=== PATIENT | male | born 1945 | race Caucasian/White ===

== ENCOUNTER → 2017-09-09 | Outpatient (CLI) | payer MEDICARE, OTHER ==
[~2017-09-09] MED LIST: ALLO300 PO; ASPI81CH PO; ATOR10 PO; FENO160 PO; FINA5 PO; FURO40 PO; LEVSOD88 PO; LOSA50 PO; METF500 PO; POTCHL20ER PO; TAMS.4ER PO
[2017-09-09 12:16] LABS: Anion Gap 8 mmol/L (6-16); Blood Urea Nitrogen 16 mg/dL (8-24); Bun/Creatinine Ratio 15.1 (12.0-20.0); CO2, Blood 30 mmol/L (21-32); Calcium, Blood 9.4 mg/dL (8.5-10.1); Chloride, Blood 106 mmol/L (98-108); Creatinine, Blood 1.06 mg/dL (0.60-1.20); Glomerular Filtration Rate >60 (60-); Glucose, Blood 119 mg/dL (70-99); Sodium, Blood 144 mmol/L (136-145)
== END ==
LOC: LAB SHORT 11:58
PROVIDERS: Physician Assistant Surgical
DX: R06.02 Shortness of breath (principal)
CPT/HCPCS: 80048; 83880

== ENCOUNTER 2019-01-23 23:48 | Emergency (ER) | payer MEDICARE, OTHER ==
[~2019-01-23] VITALS: Ht 180.3 cm; Wt 117.9 kg
[~2019-01-23 23:48] MED LIST changes: +Norco 5-325 Ta1 EACH PO; +QUET25 PO; +SERT100 PO
[2019-01-24] MEDS ORDERED: ALLO300 PO (00:03)
[2019-01-24] MEDS ORDERED: LORA.5 (00:03)
[2019-01-24] MEDS ORDERED: DONE10 PO (00:04)
[2019-01-24] MEDS ORDERED: ACET500 (00:06)
== END 2019-01-24 03:18 | disposition home or self-care (01) ==
LOC: ER 23:48
DX: S09.90XA Unspecified injury of head, initial encounter (principal); W01.198A Fall on same level from slipping, tripping and stumbling with subsequent striking against other object, initial encounter
CPT/HCPCS: 12001; 70450; 72125; 99284-25

== ENCOUNTER 2019-01-29 16:35 | Inpatient (IN) | payer MEDICARE, OTHER ==
[~2019-01-29] VITALS: Ht 180.3 cm; Wt 107.1 kg
[~2019-01-29 16:35] MED LIST changes: +ACET500; +DONE10 PO; +LORA.5
[2019-01-29 17:01] LABS: BASOPHILS ABSOLUTE AUTO 0.01 K/mm3 (0.00-0.23); BASOPHILS PERCENT AUTO 0 % (0-2); EOSINOPHILS ABSOLUTE AUTO 0.09 K/mm3 (0.00-0.68); EOSINOPHILS PERCENT AUTO 1 % (0-6); Hematocrit 39.7 % (37.0-53.0); Hemoglobin 12.5 g/dL (13.5-17.5); IMMATURE GRAN ABSOLUTE AUTO 0.03 K/mm3 (0.00-0.10); IMMATURE GRAN PERCENT AUTO 0 % (0-1); LYMPHOCYTES ABSOLUTE AUTO 1.09 K/mm3 (0.84-5.20); LYMPHOCYTES PERCENT AUTO 14 % (21-46); MONOCYTES ABSOLUTE AUTO 0.54 K/mm3 (0.16-1.47); MONOCYTES PERCENT AUTO 7 % (4-13); Mean Corpuscular HGB 29.5 pg (26.0-34.0); Mean Corpuscular HGB Conc 31.5 g/dL (31.5-36.5); Mean Corpuscular Volume 94 fL (80-100); Mean Platelet Volume 9.8 fL (9.1-12.4); NEUTROPHILS ABSOLUTE AUTO 5.82 K/mm3 (1.96-9.15); NEUTROPHILS PERCENT AUTO 77 % (41-73); Platelet Count 154 K/mm3 (150-400); RDW Coefficient Variation 15.7 % (11.7-14.2); RDW Standard Deviation 53.8 fL (35.1-46.3); Red Blood Cell Count 4.24 M/mm3 (4.30-5.90); White Blood Cell Count 7.58 K/mm3 (4.00-11.30)
[2019-01-29] MEDS ORDERED: ALFUZOSIN HCL10 MG PO (17:07)
[2019-01-29] MEDS ORDERED: ATOR10 PO (17:08)
[2019-01-29] MEDS ORDERED: ASPI81CH PO ×2 (17:08→22:21)
[2019-01-29] MEDS ORDERED: MULTI VITAMIN1 EACH PO (17:08)
[2019-01-29] MEDS ORDERED: ALLO300 PO (17:08)
[2019-01-29] MEDS ORDERED: DONE10 PO (17:08)
[2019-01-29] MEDS ORDERED: FINA5 PO (17:09)
[2019-01-29] MEDS ORDERED: Furosemide20 MG PO (17:09)
[2019-01-29] MEDS ORDERED: LOSARTAN POTAS100 MG PO (17:10)
[2019-01-29] MEDS ORDERED: LORA.5 PO ×3 (17:10→22:48)
[2019-01-29] MEDS ORDERED: EUTHYROX88 MCG PO (17:10)
[2019-01-29] MEDS ORDERED: SERT100 PO (17:11)
[2019-01-29] MEDS ORDERED: QUET25 PO ×2 (17:11→22:12)
[2019-01-29] MEDS ORDERED: POTCHL20ER PO (17:11)
[2019-01-29] MEDS ORDERED: VITAMIN B122500 MC1 PO (17:12)
[2019-01-29 17:14] LABS: Alanine Aminotransfer (ALT/SGP 25 U/L (12-78); Albumin, Blood 3.8 g/dL (3.4-5.0); Albumin/Globulin Ratio 1.5 (0.8-1.8); Alk Phos 78 U/L (50-136); Anion Gap 7 mmol/L (6-16); Aspartate Aminotrans (AST/SGOT 22 U/L (12-37); Bilirubin, Total 0.5 mg/dL (0.1-1.0); Blood Urea Nitrogen 17 mg/dL (8-24); Bun/Creatinine Ratio 16.3 (12.0-20.0); CO2, Blood 28 mmol/L (21-32); Chloride, Blood 108 mmol/L (98-108); Creatinine, Blood 1.04 mg/dL (0.60-1.20); Globulin, Blood 2.5 g/dL (2.2-4.0); Glomerular Filtration Rate >60 (60-); Glucose, Blood 110 mg/dL (70-99); Sodium, Blood 143 mmol/L (136-145); Total Protein, Blood 6.3 g/dL (6.4-8.2)
[2019-01-29] MEDS ORDERED: FENO160 PO (19:29)
[2019-01-29] MEDS ORDERED: CYAN500 PO (22:17)
[2019-01-29] MEDS ORDERED: CHOL10002 PO (22:19)
[2019-01-29] MEDS ORDERED: ACET325 PO (22:20)
[2019-01-29] MEDS ORDERED: THERA1 EACH PO (22:22)
--- NOTE | 2019-01-29 23:24 | NUR ---
ADMIT NOTE PATIENT ADMITTED FROM THE ER AND WAS TRANSFERED FROM THE [facility] TO THE BED VIA SIDDER SHEET. PATIENT PLEASENT BUT CONFUSED AND FORGETFUL. PATIENT STATING THAT IT IS JANUARY 01, 2018. PATIENT ABLE TO STATE THAT HE IS AT THE HOSPITAL BUT UNABLE TO STATE WHICH [place]. PATIENT DID ATTEMPT TO GET OUT OF BED BUT WAS EASILY REDIRECTABLE. BED ALARM ON FOR SAFETY. CALL LIGHT WITHIN REACH.
--- NOTE | 2019-01-29 23:28 | NUR ---
UPDATE AT APPROX 2230 AFTER REDIRECTING PATIENT BACK INTO BED PATIENT BECAME VERY AGITATED WITH STAFF AND STARTED YELLING AND PULLING/PUSHING AT THINGS. PATIENT CONTINUED TO ATTEMPT TO CLIMB OUT OF BED AND WAS NO LONGER REDIRECTABLE. AN ORDER FOR A CJ VEST, BILATERAL SOFT WRIST RESTRAINTS, AND RAILS X4 WAS OBTAINED FROM [facility]. PATIENT A VERY HIGH FALL RISK, PATIENT FELL PRIOR TO ARRIVING TO THE HOSPIRTAL. PATIENT EXTREMALY AGITATED AND WANTS TO GET UP AND WALK AROUND HIS ROOM BUT HAS A HX OF MULTIPLE FALLS AND HAS WHAT APPEARS TO BE SEVERAL LUMPS ON HIS HEAD, POSSIBLY FROM PREVIOUS FALLS. AN ATTEMPT TO GIVE PO BENADDRYL WAS MADE BUT PATIENT SPITE IT OUT. IV BENADRYL WAS THEN ORDERED. PATIENT CURRENTLY AWAKE IN BED AND IS CALMER AND NOT YELLING OUT BUT PATIENT CONTINUES TO PULL AT RESTRAINTS AND ATTEMPT TO GET OUT OF BED. BED ALARM ON. WILL CONTINUE TO MONITOR.
[2019-01-30 04:02] LABS: Hematocrit 38.4 % (37.0-53.0); Hemoglobin 12.3 g/dL (13.5-17.5); Mean Corpuscular HGB 29.4 pg (26.0-34.0); Mean Corpuscular Volume 92 fL (80-100); Mean Platelet Volume 9.5 fL (9.1-12.4); Platelet Count 148 K/mm3 (150-400); RDW Coefficient Variation 15.7 % (11.7-14.2); RDW Standard Deviation 52.5 fL (35.1-46.3); Red Blood Cell Count 4.18 M/mm3 (4.30-5.90); White Blood Cell Count 8.07 K/mm3 (4.00-11.30)
[2019-01-30 04:24] LABS: Anion Gap 7 mmol/L (6-16); Blood Urea Nitrogen 14 mg/dL (8-24); Bun/Creatinine Ratio 17.2 (12.0-20.0); CO2, Blood 27 mmol/L (21-32); Calcium, Blood 8.9 mg/dL (8.5-10.1); Chloride, Blood 112 mmol/L (98-108); Creatinine, Blood 0.81 mg/dL (0.60-1.20); Glomerular Filtration Rate >60 (60-); Glucose, Blood 98 mg/dL (70-99); Potassium, Blood 3.5 mmol/L (3.5-5.5); Sodium, Blood 146 mmol/L (136-145)
--- NOTE | 2019-01-30 06:43 | NUR ---
SHIFT SUMMARY PATIENT CALMED FOR SEVERAL HOURS AND APEARED TO REST COMFORTABLY. HOWEVER, PATIENT DID NOT APPEAR TO SLEEP LAST NIGHT. THIS MORNING PATIENT KEEPS THROWING HIS LEGS OVER THE EDGE OF THE BED. PATIENT IS REPOSITONED EACH TIME, HOWEVER PATIENT IS ABLE TO WIGGLE HIS LEGS BACK OVER THE EGE OF THE BED QUICKLY EACH TIME. PATIENT CONSTANTLY TALKING IN THE ROOM, EVEN WHEN NO ONE IS THERE. PATIENT WILL SAY THINGS LIKE, "WHY ARE THOSE PEOPLE STANDING THERE? 11,9,5 ARE NUMBERS BACK IN MY OFFICE, PEOPLE ARE ON THE OVERPASS ALL THE TIME." PATIENT'S THOUGHTS DO NOT CONNECT AND PATIENT IS FREQUENTLY UNABLE TO APPROPRIATLEY RESPOND TO QUESTIONS. HOWEVER, MENTATION DOES NOT APPEAR TO HAVE CHANGED SINCE ADMIT TO THE FLOOR. SEIZURE PERCAUTIONS IN PLACE. NEURO CHECKS PER ORDERS. WILL CONTINUE TO MONITOR PATIENT AND REPORT TO ONCOMING RN.
--- NOTE | 2019-01-30 11:46 | NUR ---
BEGINING OF SHIFT: ASSUMED CARE OF PT AT 0700, RECEIVED REPORT FROM JORDAN GARCIA. UPON ENTERING ROOM PT WAS ATTEMPTING TO GET OUT OF BED WITH BOTH FEET OVER THE RAIL. WHEN ATTEMPTING TO HELP PT BACK IN TO BED HE BECAME AGGRESSIVE AND BEGAN TO KICK AND GRAB AT STAFF. HE DID NOT MAKE CONTACT NOR HIT ANYONE, HOWEVER, STAFF HAD A DIFFICULT TIME REPOSITIONING HIM. PT IS ALERT AND IS ORIENTED TO SELF ONLY . PT IS CONFUSED AND SPEECH IS INSENSIBLE. HE RECIVED ATIVAN THIS MORNING FOR THE CT, AND THE MEDICATION WAS EFFECTIVE. PT WOUNDS WERE CLEANED AND COVERED. PT IS AT BEDSIDE. PT HAS BEEN REPOSITIONED FREQUENTLY. BED AT LOWEST LEVEL, CALL LIGHT WITHIN REACH.
--- NOTE | 2019-01-30 18:01 | NUR ---
SHIFT SUMMARY: PT'S CJ HAS BEEN TAKEN OFF, HOWEVER WRIST RESTRAINTS ARE STILL IN PLACE. PT HAS BEEN REPOSITONED FREQUENTLY AND HAS REQUIRED ATTEND CHANGE. PT APPERS DIAPHORETIC AND LINENS HAVE BEEN CHANGED EVERY TWO HOURS. ROM MOTION WAS ALSO PERFORMED. SPOKE TO PT'S AND SHE STATED THAT HIS MENTATION AND BEHAVIOR ARE WORSE THAN NORMAL.PT HAS YELLED OUT DURING THE SHIFT, A MIDDLEKO CONSULT WAS PLACED. PT CONTINUES TO TALK TO SELF. WILL CONTINUE TO MONITOR PT UNTIL REPORT IS GIVEN TO ONCOMING SHIFT. CALL LIGHT WITHIN REACH, BED AT LOWEST LEVEL.
--- NOTE | 2019-01-31 05:42 | NUR ---
SHIFT SUMMARY PATIENT REMAINED CONFUSED THROUGHOUT SHIFT, SOFT WRIST RESTRAINT STILL IN PLACE. PATIENT REPOSITIONED FREQUENTLY. HEART RHYTHM SINUS RHYTHM BUNDLE BRUNCH BLOCK HEART RATE AT 73, DIAPHORETIC. PATIENT CONTINUES TO SELF TALK. BED LOCKED, LOW POSITION, AND CALL LIGHT WITHIN REACH.
--- NOTE | 2019-01-31 13:55 | NUR ---
Initial Visit: Palliative Care Consult for AD/POLST and Advanced Care Planning. Pt is A&Ox1 and appears comfortable. Pt is pleasantly confused and engages in 2 to 3 word nonsensical conversations which is difficult to understand as Pt mumbles his workds. No signs of distress at this time. Spoke with Pt's bedside nurse Chantale. She reports Pt's Karla visited Pt earlier today. Chantale reports Pt is incontinent of bowel and bladder, and needs assistance with eating. She reports Pt has a good appetite and has not been out of bed during his hospital stay. Chantale reports speaking with Pt's . has reported Pt was up ambulating around facility and able to feed himself but has seen a significant delcine over the last 2 weeks. Current Assessment of prognostication scores is not baseline PPS 40% Karnofsky 40% FAST Score 7C ADLs 6/6 Plan: Palliative Care will F/U for therapeutic visit and discuss goals of care with Pt's when she comes into visit.
--- NOTE | 2019-01-31 17:40 | NUR ---
NURSING DAYSHIFT SUMMARY: No significant changes noted t/o the shift. Respiratory and cardiac status remain stable. Pt continues to experience confusion and word salad which was baseline (prior to fall at facility) per spouse. Fairly cooperative w/care though noted agitation at times when unable to express needs. OOB to bathroom w/two staff assist, able to bear weight though required additional staff to help direct. Pt intermittently became difficult to redirect w/increased agitation and impulsiveness, IV ativan administered x1. B/L soft wrist restraints remain in place though pt is able to swing legs over edge of bed, bed alarm set for safety purposes. Seen by psych consult, new d/o received. Call placed by RN and consulting physician to spouse, update provided. Spouse denies any questions regarding current plan of care. Frequent rounding required d/t pt's ability to use call light, cont to monitor until rpt is given to NOC RN.
--- NOTE | 2019-02-01 05:19 | NUR ---
SHIFT SUMMARY: KRUNAL ARRIVED TO FLOOR AT 1956, BED WAS SWITCHED OUT. PT WAS ALERT AND ORIENTED TO SELF ONLY. SPEAKING IN WORD SALAD. WITH SOFT WRIST RESTRAINTS NOTED TO BILATERALY. SKIN PWD, BRUISING NOTED SCATTERED ON BUE AND POSTERIER OF HEAD AROUND TO THE LEFT EAR, CAUSED BY RECENT FALL. BRUISE IS ALSO ON ABDOMIN. THERE IS ALSO PADS ON SIDE RAILS AND 4 RAILS ARE UP PER ORDERS. LS CLEAR T/O, RESP E/U. ATTENDS ARE DRY AND IN PLACE. WHEN REMOVING THE TELE STICKERS, HE BECAME AGITATED, AND TRIED TO SWAT MY HANDS AND ARMS, YELLING AND STATING TO LEAVE HIM ALONE. REDIRECTED AND HE DID OK FOR A MIN OR TWO BUT CONTINUED TO MUMBLE ON ABOUT ODD THINGS. NO BM TONIGHT. AFTER 2100 MEDS HE SLEPT WELL, WITH MILD RESTLESSNESS OFF AND ON IN HIS SLEEP LIKE HE WAS DREAMING. CONTINUED RESTRAINT CHECKS, NEURO CHECKS PER PROTOCOL. NO ACUTE CHANGES OCCURRED THIS SHIFT.
--- NOTE | 2019-02-01 12:36 | NUR ---
Pt visit this afternoon. Pt's Karla present during visit. Pt is A&Ox1 and prem pain at this time. Pt is a little more verbal today and easier to understand although he engages in nonsensical conversation. Engaged in therapeutic discussion regarding goals of care. Encouraged Karla to expresses concerns and fears regarding disease process. Karla aknowledges Pt's continued decline and reports a significant decline over the last few weeks. Discussed option for hospice and Karla expresses interest. Educated Karla on hospice philosophy with V/U made by Karla. Gave Karla list of hospice agencies available and she reports plan to discuss with facility staff for angency recommendations. Karla reports no other concerns at this time. Spoke with Pt's bedside nurse Ronald and she reports no concerns at this time. Spoke with Taye Pascal regarding Karla's decision for hospice. Spoke with Dr Andrade and he is agreeable with plan. Plan: Will place hospice referral. Palliative Care will remain available.
--- NOTE | 2019-02-01 18:49 | NUR ---
SUMMARY- PT ALERT TO SELF AND FAMILY. LABILE MOODS. HAD ONE EPISODE TODAY AND BECAME VERY COMBATIVE, SLIPPED OUT THE END OF THE BED AND RN HELPED HIM TO MAINTAIN BALANCE, STARTED TO FALL, RN WAS ABLE TO KEEP PT FROM FALLING, PT TRIED TO PUNCK STAFF MULTIPLE TIMES. PT WAS TRYING TO GO TO THE BATHROOM, HAD XL BM, BACK TO BED WITH EXTRA STAFF AND SECURITY CALLED. GAVE ZYPREXA X1, PT CALMED TOWARDS END OF SHIFT. TOLERATED MEALS WITH ASSIST, GOOD FLUID INTAKE. VSS. FAMILY IN TO VISIT THIS AM.
--- NOTE | 2019-02-02 06:50 | NUR ---
Rn summary: Patient is restless and confused. Patient is in wrist restraints. He is constantly wiggling to end of bed, throwing both legs over the rails etc. Pt did calm down after evening meds given. Patient with meds crushed in pudding except for potassium. Pt is incontinent of urine. This am pt not awake enough to take thyroid. Pt has been more calm and not trying to get out of bed. Bed to low position. Needs frequent repositioning.
--- NOTE | 2019-02-02 14:17 | NUR ---
Pt visit this AM. Pt resting in bed and has soft restraints placed. Pt appears comfortable with no signs of distress. Pt denies pain. Pt's speech easier to understand but still engages in word salad. Pt's Karla is present during visit. Karla has decided on hospice agency and reports preference for [facility]. Karla expresses concerns on Pt experiencing agitation earlier this AM and agression yesterday. Dr Andrade present during most of the visit. Dr Andrade explains that discharge will be delayed until Pt's agitation can be managed and restraints can be D/C. Karla is agreeable to this plan. Spoke with Dr Andrade and he requests for this RN to contact Dr Duenas and request to have pysch medications adjusted. No other concerns at this time. Spoke with Pt's bedside alissa Hoff and she reports that she will continue to assess Pt's safety appropriatness for soft restraints and will D/C when Pt's safety is no longer at risk. Spoke with Dr Duenas and he reports that he will adjust medications. Spoke with overnight caregiver Ledy, Taye liadavid Pascal, and [facility] liadavid Sorto regarding plan for [facility] upon discharge. Palliative Care will remain available.
--- NOTE | 2019-02-02 14:35 | NUR ---
LATE ENTRY-1435 AT 1410 PT UP IN [facility] WALKING, 3 STAFF MEMBERS ASSIST WITH AMBULATION, ATTEMPTING TO GET PATIENT BACK IN ROOM AND IN BED. PT STUMBLING WITH ASSISTANCE. RESTRAINTS TAKEN OFF APPROXIMENTLY 2 HOURS AGO, NOT AT BEDSIDE. PT ATTEMPTING TO ELBOW STAFF. PT RECEIVED PO ZYPREXA AT [address]. NOTIIF[address] GOVEA AT 1417, ORDERS TO GIVE IM ZYPREXA AND IF THAT DOES NOT WORK TO PLACE IN RESTRAINTS. SECURITY CALLED FOR ASSISTANCE. STAFF WAS ABLE TO GET PT BACK IN BED TO DO A DRESSING CHANGE AND PT STARTED HITTING STAFF WITH OPEN PALM. AT 1427 IM ZYPREXA GIVEN, PT CONTINUES TO ATTEMPT TO GET OUT OF BED. STARTS TO CALM DOWN. PT RESTING IN BED AT THIS TIME WITH NO RESTRAINTS ON. WILL CONTINUE TO MONITOR.
--- NOTE | 2019-02-02 15:42 | NUR ---
PT AGGITATED, ATTEMPING SEVERAL TIMES TO GET OUT OF BED AND SETTING THE BED ALARM OFF. STEPHIE DAI RN NOTIFIED DR GOVEA, NEW ORDER ENTERED. PT PLACED IN CJ AND SOFT WRIST RESTRAINTS TO PROTECT SLEF AND STAFF. WILL CONTINUE TO MONITOR.
--- NOTE | 2019-02-02 16:29 | NUR ---
SHIFT SUMMARY PT A&Ox1; SELF AND FAMILY. LABILE. CALM AND COOPERATIVE WITH CARE AT TIMES, BUT PT HAD SEVERAL IRRITABLE/AGGITATED EPISODE AND WAS COMBATATIVE WITH STAFF. PT REMOVED FROM RESTRAINTS THIS AFTERNOON AND PLACED IN CJ AND BILATERAL SOFT WRIST RESTRAINTS THIS AFTERNOON PER ORDERS. PT 2-3 PERSON ASSIST WITH AMBULATION, HE REFUSES TO US WALKER. PT SPEECH IS GARBLED AND NONSENSICAL AT TIMES. PT MEDICATED X2 WITH ZYPREXA FOR AGGITATION IN AN ATTEMPT TO LEAVE RESTRAINTS OFF. PT DENIES PAIN, SOB AND N/V DURING SHIFT. PT TAKES MED CRUSHED WITH APPLESAUCE. VSS. NO OTHER ACUTE CHANGES NOTED DURING SHIFT. WILL CONTINUE TO MONITOR UNTIL REPORT GIVEN TO ONCOMING RN.
--- NOTE | 2019-02-02 21:58 | NUR ---
PT RESTRAINTS REMOVED AT 2100 HRS. PT COOPERATIVE. PT NOT BEING AGGRESIVE OR TRYING TO GET OUT OF BED.
--- NOTE | 2019-02-03 04:47 | NUR ---
SHIFT SUMMARY PT RESTRIANTS REMOVED THIS SHIFT. PT CONFUSED BUT COOPERATIVE. PT HAS SLEPT WELL T/O SHIFT. PT HAD POOR PO FLUID INPUT AND POOR URINE OUTPUT THIS SHIFT. PT HAD NO ACUTE ISSUES NOTED. PT SLEEPING AND BREATHING EASY. CALL LIGHT IN REACH AND BED ALARM ON.
--- NOTE | 2019-02-03 18:32 | NUR ---
PT SLEPT MOST OF THE MORNING, DID WAKE AND TAKE HIS MEDICATIONS WITH YOGURT. PHYSICAL THERAPY WALKED PT IN THE [facility] FOR A SHORT DISTANCE. THIS AFTERNOON HE IS MORE ALERT, INTERACTING WITH FAMILY AND EATING FAMILY FEEDS HIM. HE HAS BEEN COOPERATIVE WITH CARE T/O THE SHIFT. WILL CONTINUE TO MONITOR AND REPORT TO ONCOMING RN
--- NOTE | 2019-02-04 04:00 | NUR ---
SHIFT SUMMARY PT HAD TRIED TO GET OUT OF BED EARLY IN SHIFT. PT IS UNSTEADY AND HIGH FALL RISK. PT TRIED TO HIT AND KICK STAFF WHEN REDIRECTED BACK TO BED. PT PLACED IN 4 EXT SOFT RESTRAINTS FOR SAFETY. PT HAS SLEPT OFF AND ON T/O SHIFT. PT HAD NO OTHER ISSUES NOTED. PT CURRENTLY RESTRAINED AND SLEEPING. PT CALL LIGHT IN REACH AND BED ALARM ON.
--- NOTE | 2019-02-04 18:58 | NUR ---
NO ACUTE CHANGES NOTED THIS SHIFT, PT REMAINS IN SOFT RESTRAINTS ALL 4 LIMBS. WILL CONTINUE TO MONITOR AND REPORT TO ONCOMING RN
--- NOTE | 2019-02-05 03:52 | NUR ---
SHIFT SUMMARY PT CONTINUES TO BE CONFUSED AND ATTEMPTING TO GET OUT OF BED. PT ALSO HITS AND KICKS AT STAFF. PT SOFT RESTRAINT ORDERS WERE RENEWED. PT IN 4 POINT SOFT RESTRAINT. PT HAD NO OTHER ISSUES NOTED. PT CURRENTLY SLEEPING AND BREATHING EASY. CALL LIGHT IN REACH AND BED ALARM ON.
--- NOTE | 2019-02-05 09:52 | NUR ---
SPOKE TO CAMERA HEEL EMERY BUFFER, CAMERAS UP AND WORKING
--- NOTE | 2019-02-05 13:55 | NUR ---
Pt visit this afternoon. Pt is resting in bed and appears comfortable. When responding to questions Pt engages in nonsensical conversation. Pt currently in soft restraints. Spoke with Pt's bedside nurse Anna and she reports Pt's hospital stay has been extended due to restraints. Pt's facility requires 3 days of no restraints. No other concerns reported at this time. Palliative Care will remain available.
--- NOTE | 2019-02-05 18:36 | NUR ---
SHIFT SUMMARY DIRK WAS NON VERBAL TODAY. STILL TRYING TO GET OOB WITHOUT RESTRAINTS AND DAUGHTER VISITED. INCONTINENT URINE, CHANGED AND TURNED ROUTINELY. VERY POOR PO INTAKE, ENCOURGED FREQUENTLY. SOFT RESTRAINTS ON X4. FIGHTS BRIEF CHANGES A LITTLE BIT, BUT MORE CALM OVERALL THIS SHIFT THAN YESTERDAY (PER PREVIOUS NURSE). CAMERA ON AND WORKING SINCE THIS MORNING PER DIRECTOR WOMEN. RED ILA AREA, POWDER APPLIED. NO NONVERBAL S/S OF PAIN. TOOK MOST OF MEDS WITH PUDDING, BUT HE DOES TEND TO CHEW THEM. CONSIDER CRUSHING
--- NOTE | 2019-02-06 04:14 | NUR ---
SHIFT SUMMARY PT REMAINS IN RESTRAINTS. PT LEG RESTRAINTS WERE REMOVED DURING BEGINNING OF SHIFT. DURING ATTENDS CHANGING PT TRIES TO KICK AND HIT. PT REMAINS CONFUSED AND UNABLE TO BE REDIRECTED. PT CURRENTLY SLEEPING AND BREATHING EASY. CALL LIGHT IN REACH AND BED ALARM ON.
--- NOTE | 2019-02-06 16:44 | NUR ---
PATIENT SLEPT MOST OF THE MORNING. WOKE UP FOR LUNCH AND TOOK HIS MORNING MEDS CRUSHED IN APPLESAUCE. PATIENTS AT BEDSIDE UNTIL AFTER LUNCH. RESTAINTS REMOVED AT 1025 THIS AM. PATIENT WORKED WITH PT/OT AND WALKED IN HALLS. NEEDS A LOT OF QUES AND CONTINUES TO GET UP WITHOUT ASSISTANCE. DID WELL SITTING IN HALLS IN A CHAIR WITH STAFF AROUND. VSS THIS SHIFT. NO S/S OF PAIN NOTED. LINDA TO BACK OF HEAD INTACT. 18G IV TO L AC WNL AND SL.
--- NOTE | 2019-02-07 05:16 | NUR ---
SHIFT SUMMARY PT TRIED NUMEROUS TIMES TO GET OUT OF BED, BECOMING AGITATED. WRIST RESTRAINTS PLACED BACK ON PT EARLY EVENING. PT STILL PUTTING LEGS OUT OF BED. TRYING TO GET OUT OF BED THIS AM AND STARTED TO KICK AT STAFF WHILE HELPING HIM BACK INTO BED AND STRAITENING HIM OUT. BED ALARM ON, WILL CONTINUE TO MONITOR.
--- NOTE | 2019-02-07 10:04 | NUR ---
Pt visit this AM. Pt resting in bed with his eyes closed and appears comfortable. Pt's Karla is present during visit. Karla expresses concerns regarding Pt still in restraints. She also reports [facility] is no longer willing to accept Pt back due to fall risk. She requests that discharge planners contact her for discussion of plan and options. Karla reports no other concerns at this time. Spoke with Pt's bedside nurse Babar and he reports no concerns at time of visit. Spoke with care aid Citlaly regarding 's concerns and request for care aidcomplex human resources manager. Citlaly reports she will start working on concerns. Called and spoke with Dr Storey and requested was made to consider a scheduled medication to help manage agitation such as haloperidol. Dr Storey reports that he prefers to keep current regimen. Palliative Care will remain available.
--- NOTE | 2019-02-07 12:36 | NUR ---
RESTRAINTS REMOVED: PT ALERT; ORIENTED TO SELF AND FAMILY. DECREASING COMBATIVENESS. BILATERAL SOFT WRIST RESTRAINTS REMOVED AT 1000. NO ATTEMPTS TO GET OOB; NO ATTEMPTS TO PULL OUT IV ACCESS. PT COOPERATIVE WITH CARE. PRAFUL.
--- NOTE | 2019-02-07 19:35 | NUR ---
SHIFT SUMMARY: PT ALERT; ORIENTED TO SELF AND FAMILY. PT OUT OF WRIST RESTRAINTS SINCE 1000; PT COOPERATIVE WITH CARE. INCREASING AGITATION SINCE APPROX 1600; PT HX "".PT MEDICALLY STABLE; PT REQUIRED TO BE OUT OF RESTRAINTS FOR 72 HOURS BEFORE [facility] WILL ACCEPT PATIENT. REPORT GIVEN TO ONCOMING RN.
--- NOTE | 2019-02-08 06:22 | NUR ---
SHIFT SUMMARY PT ORIENTED TO SELF ONLY. CAN GET AGITATED C CARES. INCONT OF URINE. HE WAS ABLE TO SLEEP T/O NIGHT NOT NEEDING ANY KIND OF RESTRAINTS. SCD'S IN PLACE. BED ALARM IN USE.
--- NOTE | 2019-02-08 12:20 | NUR ---
CALLED HOSPITALIST FAMILY EXPRESSED CONCERN OVER LENGTH OF TIME LINDA IN PT'S SCALP HAD BEEN IN PLACE. HOSPITALIST REQUESTED A STAPLE REMOVAL KIT BE LEFT IN ROOM FOR HIS NEXT ROUNDING, HE STATED THAT HE WILL REMOVE LINDA BEFORE PT IS DC'D.
--- NOTE | 2019-02-08 15:02 | NUR ---
Pt visit this afternoon. Pt is resting in bed and appears comfortable. Pt engages in nonsensical conversation. He appears mildly anxious as evidenced by constand movement of his body including his arms and hands. Currently out of restraints. Palliative care will remain available
--- NOTE | 2019-02-08 17:13 | NUR ---
CALLED HOSPITALIST, CALLED DR. FLORES PT BECAME ANXIOUS, REFUSING TO BE RE-DIRECTED. I GAVE ORAL XYPREXA. NURSING AID TOOK HIM FOR A WALK. PT BECAME MORE AND MORE AGITATED. ATTEMPTED TO GET OUT OF BED UNSAFELY OVER THE RAILINGS. I GAVE IM XYPREXA. BUNCHER OPERATOR AND CHARGE SAT WITH PT ATTEMPTING TO CALM. PT BEGAN TO ATTEMPT TO HIT STAFF, HITTING BUNCHER OPERATOR IN ABDOMEN. HARIS HERNANDEZ CALLED. PT PUT IN CJ VEST. CALLED HOSPITALIST. HE AGREED TO CJ RESTRAINT. HE RECOMMENDED MEDICATION DOSAGE CHANGES AND THAT I CALL DR. FLORES, WHO AGREED WITH THE HOSPITALIST'S RECOMENDED CHANGES.
--- NOTE | 2019-02-08 17:46 | NUR ---
SHIFT SUMMARY ADMITTED FOR SUBARACHNOID BLEED. DNR. A&O TO SELF AND FAMILY ONLY. HX DEMENTIA. PULLED OUT IV ON PREVIOUS SHIFT. HOPING FOR DC TO [place] IF PT CAN REMAIN FREE OF RESTRAINTS FOR 3 DAYS. PT HAS A LARGE WOUND/HEMATOMA WITH LINDA ON LEFT POSTERIOR SCALP. FROM [place] WHERE HE FELL. NEW ORDERS ENTERED TODAY WHEN PT BECAME COMBATIVE W/STAFF AND IMPULSIVE. HARIS HERNANDEZ CALLED, PT RESTRAINED VIA CJ VEST. CRUSH MEDS IN APPLESAUCE. [place] PT.
--- NOTE | 2019-02-09 07:05 | NUR ---
SHIFT SUMMARY PT IN CJ VEST RESTRAINTS. SWINGS AND GETS AGITATED C CARES. HE SLEPT THROUGH OUT NIGHT. INCONT OF URINE Q2HR TURNS. BED ALARM IN USE.
--- NOTE | 2019-02-09 13:42 | NUR ---
CALLED HOSPITALIST LEFT OUR CONTACT NUMBER FOR HIS PAGER. WANTED TO INFORM HIM THAT THE PT WAS AWAKE AND UPDATE HIM ON FAMILY REQUESTS. PT IS BATTING AT HIS WHEN SHE ATTEMPTS TO FEED HIM OR GIVE HIM FLUIDS.
--- NOTE | 2019-02-09 13:56 | NUR ---
SPOKE TO DR LAURENT- PER DR LAURENT ALL MEDS HELD ARE ONCE A DAY MEDICATIONS AND SHOULD BE GIVEN TODAY WHEN PT WAKES UP. WILL PASS THIS ON TO DAY RN WHEN SHE RETURNS.
--- NOTE | 2019-02-09 14:38 | NUR ---
GAVE MORNING MEDS NURSE RADHA RECEIVED INSTRUCTIONS FROM HOSPITALIST TO GIVE DAILY MEDS THAT HAD BEEN HELD EARLIER DUE TO PT'S LETHARGY. I DID NOTICE THAT THE THYROID MEDICINE HAD NOT BEEN GIVEN SINCE TUESDAY. I DID GIVE IT TODAY ORALLY. WITH MUCH RE-DIRECTION AND COAXING WE WERE FINALLY ABLE TO GIVE THE ORAL MEDS.
--- NOTE | 2019-02-09 15:54 | NUR ---
SHIFT SUMMARY PT ADMITTED FOR A SUBARACHNOID BLEED (FELL @ [facility] WHERE HE PREVIOUSLY RESIDED). DNR. LARGE HEMATOMA W/LINDA IN LEFT POSTERIOR SCALP. MEDS GIVEN CRUSHED IN APPLESAUCE/PUDDING. CJ VEST ON FOR COMBATIVE BEHAVIOR AND FOR TRYING TO GET OUT OF BED OVER RAILINGS. ATTENDS IN PLACE. WALKING DOES HELP PT'S MENTATION. MED CHANGES MADE TODAY W/INPUT FROM FAMILY TO HOSPITALIST:BUBBA BHANDARI. PT USES A FWW W/GAIT BELT TO AMBULATE, ONE ASSIST. PT SLEPT MOST OF DAY, DAILY MEDS WERE NOT ADMINISTERED UNTIL EARLY AFTERNOON DUE TO PT'S LETHARGY. I DID ADMIN PRN 5 MG ZYPREXA @1542 HRS WHEN IT WAS POINTED OUT TO ME THAT HIS PATTERN IS TO "" AROUND 1600 HRS. PT WAS WALKED BY PHYSICAL THERAPY DOWN DCU [facility] AND BACK, HE COOPERATED AND GOT HIMSELF BACK INTO BED. I AM AGAIN LEAVING CJ UNTIED AND DC'ING CJ VEST. THE HOPE IS FOR 3 DAYS - NO RESTRAINTS, THEN ALF PLACEMENT @ [facility].
--- NOTE | 2019-02-09 19:29 | NUR ---
CALLED HOSPITALIST PT ATTEMPTING TO EXIT BED. NON-COOPERATIVE. ANGRY. THREW FULL DRINK ACROSS ROOM. SWATTING AT STAFF. PREVIOUSLY HAD GIVEN PRN ZYPREXA IN AN ATTEMPT TO AVOID RESTRAINTS, BUT TO NO AVAIL. PT HAD ONLY BEEN OUT OF RESTRAINTS FOR A FEW HOURS WHEN HIS BEHAVIOR BEGAN TO ESCALATE AGAIN.
--- NOTE | 2019-02-10 06:21 | NUR ---
SHIFT SUMMARY PT IS A 73 Y/O MALE, ADMITTED FOR A SUBARACHNOID BLEED AFTER A HEAD INJURY FROM A FALL AT HOME. PT IS A&O X SELF/FAMILY, AND VERY LETHARGIC WITH WORD SALAD NOTED DURING THE EVENING. IN THE MORNING, PT APPEARED MORE ALERT, AND WAS ABLE TO COHERENTLY ANSWER QUESTIONS WITH ONE TO TWO WORD ANSWERS. PT WAS PLACED IN A CJ VEST DURING THE NIGHT, THE PT IS OCCASIONALLY COMBATIVE AND IS A HIGH FALL RISK. HE DENIED ANY COMPLAINTS OF PAIN, NAUSEA OR SOB DURING THE NIGHT, AND SLEPT WELL. VITAL SIGNS STABLE. NO OTHER ACUTE CHANGES IN PT CONDITION NOTED. WILL CONTINUE TO MONITOR AND TREAT PER EMAR.
--- NOTE | 2019-02-10 16:04 | NUR ---
SHIFT SUMMARY NO ACUTE CHANGES. PATIENT OUT OF RESTRAINTS TODAY. AT BEDSIDE THIS MORNING. PATIENT DENIES PAIN, NAUSEA, AND SHORTNESS OF BREATH. PATIENT NAPPED OFF AN ON DURING SHIFT, COOPERATIVE WITH CARE. CALL LIGHT IN REACH, WILL CONTINUE TO MONITOR.
--- NOTE | 2019-02-10 22:51 | NUR ---
SYNCOPAL EPISODE WHILE THIS RN WAS IN THE ROOM, PT STATED THAT "I DON'T FEEL SO GOOD", BEFORE FALLING OVER IN BED AND HAVING A SYNCOPAL EPISODE. PT WAS UNRESPONSIVE FOR APPROXIMATELY 10 SECONDS, AND DID NOT RESPOND TO A STERNAL RUB AT THAT TIME. AFTER 10 SECONDS, PT WOKE UP. HE WAS ABLE TO ANSWER QUESTIONS, BUT APPEARED MORE LETHARGIC AFTER HIS SYNCOPAL EPISODE. THE HOSPITALIST SELINA ANDERSON WAS CONSULTED, AND ORTHOSTATIC VITALS WERE ORDERED, WHICH WERE NEGATIVE. VITAL SIGNS WERE STABLE. PER THE TELE MONITOR, THERE WAS NO CHANGES IN HEART RHYTHM DURING HIS SYNCOPAL EPISODE. WILL CONTINUE TO MONITOR.
--- NOTE | 2019-02-11 06:03 | NUR ---
SHIFT SUMMARY PT IS A 73 Y/O MALE, ADMITTED FOR A SUBARACHNOID BLEED AFTER A FALL AT HOME. PT ALSO HAS A STAPLED WOUND ON THE BACK OF HIS HEAD FROM THAT FALL. PT DENIED ANY ACUTE PAIN, NAUSEA OR SOB AND SLEPT WELL THROUGH THE NIGHT. VITALS REMAINED STABLE. PT REMAINED OUT OF RESTRAINTS DURING THE NIGHT, AND WAS OVERALL COOPERATIVE WITH CARE. NO OTHER ACUTE CHANGES IN PT CONDITION NOTED. WILL CONTINUE TO MONITOR AND TREAT PER EMAR.
--- NOTE | 2019-02-11 18:08 | NUR ---
SHIFT SUMMARY NO ACUTE CHANGES. PATIENT VERY SLEEPY AND SEEMED TO BE MORE CONFUSED TODAY WHEN COMPARED WITH YESTERDAY. PATIENTS VISITED THIS MORNING. PATIENT SOMETIMES COMBATIVE WITH CARE BUT REDIRECTABLE. PATIENT DENIES PAIN, NAUSEA, AND SHORTNESS OF BREATH. CALL LIGHT IN REACH, WILL CONTINUE TO MONITOR.
--- NOTE | 2019-02-12 05:24 | NUR ---
SHIFT SUMMARY PT IS A 73 Y/O MALE, ADMITTED FOR A SUBARACHNOID BLEED. HE IS A&O X SELF, AND COOPERATIVE WITH CARE. CURRENTLY ON BEDREST. PT DENIED ANY COMPLAINTS OF PAIN, NAUSEA OR SOB, AND SLEPT WELL THROUGH THE NIGHT. VITALS REMAINED STABLE. NO OTHER ACUTE CHANGES IN PT CONDITION NOTED. WILL CONTINUE TO MONITOR AND TREAT PER EMAR.
--- NOTE | 2019-02-12 17:40 | NUR ---
SHIFT SUMMARY PATIENT RESPONDS TO VERBAL CUES. OPENS EYES WHEN YOU TALK TO HIM. PATIENTS SPEECH IS VERY GARBLED AND HARD TO UNDERSTAND. NOT ANSWERING QUESTIONS WITH YES OR NO ANSWERS. VERY SLEEPY THIS SHIFT. WITH SEVERAL CUES AND REDIRECTING BY FAMILY PATIENT TOOK HIS MORNING MEDICATIONS. FAMILY REFUSED PATIENT TO HAVE FLOMAX. RN SPOKE WITH PT/OT WHO EXPRESSED CONCERNS OF THE PATIENT HAVING HAD A CHANGE IN STATUS SINCE TUESDAY WHEN THEY WORKED WITH HIM LAST. RN DISCUSSED THIS WITH DR. CURTIS WHO HAD BEEN IN TO SEE THE PATIENT AND WAS AWARE OF PATIENT STATUS. STATED THE PLAN WAS FOR THE PATIENT TO BE GOING ON HOSPICE. REPOSITIONED PATIENT Q2 HOURS. NEURO CHECKS Q 4 HOURS. NO ACUTE CHANGES THIS SHIFT. BED ALARM IN PLACE. RN WILL CONTINUE TO MONITOR.
--- NOTE | 2019-02-13 05:05 | NUR ---
SHIFT SUMMARY NO CHANGES IN ASSESSMENT AT THIS TIME. PT SLEPT MOST THE NIGHT. PT CURRENTLY SLEEPING SOUNDLY. CALL LIGHT IN REACH. PT CONTINUES TO BE UNABLE TO FOLLOW DIRECTIONS. VSS. WILL CONTINUE TO MONITOR UNTIL TURNOVER IS COMPLETE.
--- NOTE | 2019-02-13 13:59 | NUR ---
Clinical Visit: Pt is active in bed, keeps rolling to one side. He appears slightly agitated, but moves slowly and is very slow. Upper side rails are up. Pt's is at bedside, her name is Karla. She reports that she is confused about his medications - zyprexa and benedryl - and why he is still on them if he is better. She states that he has not been awake enough to eat food, yesterday and today. She is concerned about this. Karla states that she has no idea where he is going on discharge and expresses concern that he should not go anywhere at this time. She states, "Look at him! Does he look like he should be released?" She states that it is "imparative" that she speak to the doc today. Called and spoke to town plannerHaydee. She states that LENIN horne is working on this case. She is letting Naida know that Karla is here and would like to talk to her. Call placed to Dr. Willis to let her know that pt's is here and would like to discuss her 's condition. Helena reports that he has now been out of restraints for 3 days. Reviewed with Helena and Naida. Will remain available.
--- NOTE | 2019-02-13 18:19 | NUR ---
SUMMARY PT RESTING QUIETLY IN BED, PT SLEPT OFF AND ON FOR MOST OF THE DAY, PT WOKE BRIEFLY FOR MEALS AND REPOSITIONING, BUT FELL ASLEEP WHEN LEFT ALONE, SPOUSE HAS BEEN AT THE BEDSIDE FOR MOST OF THE DAY, VSS, NO ACUTE CHANGES, WILL CONT TO MONITOR
--- NOTE | 2019-02-14 05:26 | NUR ---
SHIFT SUMMARY PT AGGRIVATED THIS MORNING AFTER VITAL SIGNS & BRIEF CHANGE. PT TRIED TO PUNCH THIS RN. PT REMINDED NOT TO HIT STAFF. NO OTHER CHANGES IN ASSESSMENT AT THIS TIME. PT SLEPT A GOOD AMOUNT OVERNIGHT. VSS. WILL CONTINUE TO MONITOR UNTIL TURNOVER IS COMPLETE.
--- NOTE | 2019-02-14 11:32 | NUR ---
Pt visit this AM. Pt appears mildly anxious as evidenced by occasional moving of hands and legs. Pt did not respond verbally when asked questions. Pt's Karla is present during visit. Karla engaged in discussion regarding plan. She expresses concerns of Pt adjusting to his current environment then having to readjust once placed. Validated her concerns and discussed plan to find placement. Karla is still agreable for proper placement with [facility]. No other concerns reported. Spoke with Pt's bedside nurse Fadia and she reports no concerns. Palliative Care will remain available.
--- NOTE | 2019-02-14 17:02 | NUR ---
SHIFT SUMMARY PT IN BED THROUGH DAY WITH AT BEDSIDE. SPOKE WITH DR. CURTIS ABOUT LINDA ON BACK OF HEAD AND OBTAINED ORDER TO REMOVE. 6 LINDA REMOVED WITH PT HAVING MINIMAL DIFFICULTY. OCC WILL ATTEMPT TO HIT OUT AT STAFF BUT DOESN'T QUITE MAKE CONTACT. EATING AND DRINKING MINIMALLY BUT THIS MORNING HE HAD BEEN TALKING RANDOMLY. TENTATIVELY TO DISCHARGE TO [facility].
--- NOTE | 2019-02-15 17:17 | NUR ---
SHIFT SUMMARY FAMILY HAS BEEN IN ROOM THROUGH DAY SINCE APPROX 0930. LESS RESPONSIVE THIS MORNING AND THEN APPEARED UNCOMFORTABLE IN BED ROLLING BACK AND FORTH AND PULLING HIMSELF AROUND WITH RAIL. ROXANOL GIVEN AND STARTED RESTING EASIER. GIVEN ANOTHER DOSE WHEN FAMILY AT BEDSIDE AND PT SLEPT FOR SEVERAL HOURS. DID EVENTUALLY WAKE UP AND HAS BEEN RANDOMLY SPEAKING UNDER HIS BREATH PER HIS . EYES OPEN AND WHEN HE WAS LAST TURNED AND CHANGED HE VERRBALLY RESPONDED APPROPRIATELY TO DIRECTIONS. SPOKE WITH ABOUT PT EATING AND DRINKING. HAD SAID SHE DIDN'T WANT HIM TO BE FED OR GIVEN FLUIDS UNLESS HE ASKED. EXPLAINED HE DOESN'T KNOW HOW TO ASK IN HIS DEMENTIA AND IF FOOD IS OFFERED WELL FLUIDS AND HE TAKES IT AND HE IS AWAKE AND ALERT FOR SAFETY ITS OK TO FEED HIM. HE CAN CLOSE HIS MOUTH AND NOT EAT IF HE DOESN'T WANT TO EAT. HAS APPEARED PEACEFUL THIS AFTEROON. NO AGGRESSION NOTED.
--- NOTE | 2019-02-16 06:47 | NUR ---
NO REAL CHANGES TO REPORT. PATIENT REMAINS LARGELY UNRESPONSIVE, OTHER THAN INTERMITTENT NONSENSICAL CHATER THAT HE WHISPERS TO HIMSELF. PATIENT MAKES NO EYE CONTACT. HAS A FLAT AFFECT. PATIENT WAS TURNED AND CHANGED Q2 HOURS PER PROTOCOL.
--- NOTE | 2019-02-16 09:00 | NUR ---
PT PLEASANT THIS MORNING. ABLE TO SAY HELLO. HE DENIES PAIN, ALERT TO SELF, FAMILY. ONLY A COUPLE Y/N QUESTIONS. THEN QUIET. PT IS COMFORT. CARE. CLEAN DRY AT THIS TIME. NO CARDENAS, NO TELE. BED IN LOW POSITION, CALL LITE IN REACH. BED ALARM ON FOR SAFETY
--- NOTE | 2019-02-16 14:49 | NUR ---
Spoke with Pt's bedside nurse Singh and he requests palliative care to have conversation regarding comfort care and hospice philosophy. He reports Karla would benefit from further education. Pt is resting in bed with his eyes closed and appears comfortable. Karla is present during visit. Engaged in discussion regarding care including comfort care. Karla explains her understanding and reports at first she was confused but understand now. Karla reports that her daughter is considering having Pt move in with her and Karla would also move in to help care for Pt. Educated on risk factors of caregiver fatigue with V/U made by Karla. Karla reports that she can also highter in home caregivers to help provide respite. No other concerns reported at this time. Palliative Care will remain available.
--- NOTE | 2019-02-16 18:06 | NUR ---
PT RESTING TODAY. DID DRINK A PEPSI FOR HIS AT BEDSIDE. DID OFFER CHOCH MILKSHAKE. DID NOT TAKE. PT [id number] MOSTLY IN [place] TODAY. OCCATIONALLY IS RATIONAL. AND DAUGHTER AT BEDSIDE MUCH OF DAY. NO OTHER CONCERNS AT THIS TIME. BED IN LOW POSITION, CA;LL LITE IN REACH, BED ALARM ON FOR SAFETY.
--- NOTE | 2019-02-16 19:37 | NUR ---
FAMILY IN ROOM NOW. PT APPEARS TO BE SLEEPING AND COMFORTABLE. I DID INTRODUCE MYSELF TO FAMILY.
--- NOTE | 2019-02-17 04:32 | NUR ---
NOC SHIFT SUMMARY PT HAS RESTED IN BED THIS NIGHT, REPOSITIONED THROUGH THE NIGHT. DOES NOT ANSWERE QUESTIONS OR SPEAK FOR ME THIS SHIFT. FAMILY WAS IN ROOM EARLY IN THE NIGHT BUT WENT HOME. HE HAS SLEPT ALMOST THE ENTIRE SHIFT AND APPEARS COMFORTABLE. WILL CONTINUE TO MONITOR.
--- NOTE | 2019-02-17 17:05 | NUR ---
PT STARTED THE SHIFT VERY SLEEPY AND COULDN'T HARDLY BE WOKE UP. PT SLEEP MOST OF THE DAY AND HAS BEEN TURNED EVERY TWO HOURS. PT DID WAKE UP LATE AFTERNOON AND DRANK A SMALL PEPSI AND ATE ONE ICE CREAM. PT STATED THAT WAS WONDERFUL AND THEN WENT BACK TO SLEEPING. NO DISTRESS NOTED WILL CONTINUE TO MONITOR.
--- NOTE | 2019-02-17 18:59 | NUR ---
PT LAYING IN BED SLEEPING, APPEARS COMFORTABLE.
--- NOTE | 2019-02-17 20:52 | NUR ---
REPOSITIONED AND CHANGED ATTENDS, PT APPEARS COMFORTABLE
--- NOTE | 2019-02-18 03:05 | NUR ---
NOC SHIF SUMMARY PT IS VERY SLEEPY. HAS SLEPT MOST OF SHIFT WAKING BRIEFLY FOR EVENING MED PASS THEN FALLING BACK TO SLEEP. HAS BEEN TURNED THROUGHOUT THE NIGHT. HE IS CURRENTLY SLEEPING AND APPEARS COMFORTABLE AND IN NO ACUTE DISTRESS. WILL CONTINUE TO MONITOR.
--- NOTE | 2019-02-18 06:16 | NUR ---
REPOSITIONED, CHANGED, PERSONAL CARE COMPLETED. PT APPEARS COMFORTABLE.
--- NOTE | 2019-02-18 17:16 | NUR ---
PT AOX1 AND HAS BEEN SLEEPING MOST OF THE DAY. PT HAS BEEN TAKING DRINKS, BUT HAS NOT WANTED TO EAT. PT SEEMS TO ENJOY HIS FAMILY IN ROOM MAKES SMALL SMILES OR LITTLE RESPONSES TO THEM. JUST VERY MINIMAL SPEACH AND HE IS VERY QUIET AND HARD TO UNDERSTAND. TURNING Q2 HRS AND WILL CONTINUE MONITOR. TREATED FOR PAIN PER EMAR X1 TODAY.
--- NOTE | 2019-02-19 04:01 | NUR ---
CLEANED, REPOSITIONED, APPEARS COMFORTABLE.
--- NOTE | 2019-02-19 04:46 | NUR ---
NOC SHIFT SUMMARY PT SLEEPING IN BED THIS SHIFT. HE DID WAKE LONG ENOUGH TO TAKE EVENING MEDS. FLUIDS WERE OFFERED AND HE REFUSED. WAS IN ROOM AT BEGINING OF SHIFT BUT LEFT IN THE EVENING. HAS BEEN REPOSITIONED [id number]. PRESENTLY APPEARS TO BE SLEEPING AND IN NO ACUTE DISTRESS. APPEARS COMFORTABLE. WILL CONTINUE TO MONITOR.
--- NOTE | 2019-02-19 08:46 | NUR ---
PAL CARE COMFORT CARE ASSESSMENT. PT SUPINE IN BED WITH HOB SL ELEVATED. HIS EYES ARE CLOSED AND RETURN TO CLOSED WITH BRIEF ROUSING. HEADLIGHT ADJUSTER BROUGHT BREAKFAST TRAY IN BUT PT IS NOT AWAKE/ALERT ENOUGHT TO ATTEMPT FEEDING AT THIS TIME. NO FAMILY IN THE ROOM CURRENTLY BUT RN DOCUMENTED THAT HE APPEARED TO ENJOY FAMILY VISITING MOST OF YEST. PT KEEPS HIS EYES CLOSED BUT HANDS ARE IN MOTION, GRIPING SHEET AND MOVING BACK AND FORTH. SOME FOOT MOVEMENT NOTED ALSO. PT DOES NOT APPEAR RESTFUL BUT NO SEVER AGITATION NOTED EITHER. I BELIEVE THE FIDGETING IS NORMAL FOR HIM WITH HIS ADVANCED DEMENTIA. I DID NOT NOTE NONVERBAL INDICATORS OF PAIN OR DISTRESS. HEADLIGHT ADJUSTER TO RETURN LATER WHEN PT MORE WAKEFUL AND ATTEMPT FEEDING. HE HAS MOSTLY ONLY ACCEPTED SIPS OF FLUIDS SPORATICALLY BUT VERY LITTLE PO INTAKE PAST FEW DAYS.
--- NOTE | 2019-02-19 18:44 | NUR ---
TURNED Q 2 HOURS. COOPERATIVE WITH MEDS. MEPILEX CHANGED. BUTTOCK VERY SLIGHTLY RED. GOAL IS TO [facility] TUESDAY ON HOSPICE TO ASS[facility]ED [facility] [place]. BED IN LOW POSITION. PRAFUL.
--- NOTE | 2019-02-20 04:22 | NUR ---
TRICK RODEO RIDER SUMMARY NO ACUTE CHANGES. PT REMAINS ON COMFORT CARE. TURNED AND CHANGED FREQUENTLY THROUGH THE NIGHT. PT APPEARS TO BE IN NO PAIN, EVEN WITH REPOSITIONING. ABLE TO TAKE EVENING MEDS CRUSHED IN APPLESAUCE WITH NO DIFFICULTIES. WILL CONTINUE TO MONITOR.
--- NOTE | 2019-02-20 08:35 | NUR ---
PAL CARE COMFORT CARE VISIT. Pt lying supine in bed. Snoring lightly with even and unlabored breathing. He did not wake to verbal or tactile stimuli. I left him undisturbed. I did not note any nonverbal indicators of pain, anxiety, distress. He has only been given his zyprexa and benedryl per eMAR and s/s appear well managed. No family or staff at bedside during my visit.
--- NOTE | 2019-02-20 16:32 | NUR ---
COOPERATIVE FOR MEDS. APPEARS TO RECOGNIZE RELATIVES. TURNED Q 2 HOURS. MEDICATED ONCE FOR PAIN. PATIENT HAD INTERMITTENT FURROWED BROW AND GRIMACING. GOOD RESULTS WITH MEDS. RELATIVES ATTENTIVE. WCTM.
--- NOTE | 2019-02-20 17:36 | NUR ---
[facility] family visit: I met with Mr. Davis's dtr, Saundra, at bedside. She appears loving and devoted. she told me about how difficult it has been for her family to see Dirk decline into dementia these past two years. She admits there is some level of relief that he will "soon be going home to God." She spoke about her father's strengths and loving qualities. I affirmed obvious love, complimented her on her calm acceptance, and offered prayer for pt and family. Mr. Davis slept throughout visit. No visible signs of ditress or pain. I will remain available to pt and family.
--- NOTE | 2019-02-21 04:30 | NUR ---
SHIFT SUMMARY NO ACUTE CHANGES. PT SLEPT THROUGHOUT THE NIGHT. PT WOULD MUMBLE INCOHERENTLY WHEN SPOKEN TO, APPEARING ASLEEP WHEN MUMBLING. OTHERWISE PT NONVERBAL. PT TOLERATED NIGHTTIME MEDICATIONS CRUSHED IN APPLESAUCE. NO PRN MEDICATIONS GIVEN THIS EVENING. PT INCONTINENT, ATTENDS IN PLACE. TURNED AND CHANGED NEEDED. MEPILEX IN PLACE ON COCCYX. PT FOUGHT WITH TURNING AND CHANGING MINIMALLY PUSHING AGAINST THE BED. WAS NOT VIOLENT OR AGGRESSIVE TONIGHT. RESTING COMFORTABLY IN BED AT THIS TIME. WILL CONTINUE TO MONITOR.
--- NOTE | 2019-02-21 08:40 | NUR ---
report given to kiersten rodrigues. answer all questions.
== END 2019-02-21 09:57 | DRG 64 ==
LOC: ER 16:35 → PCU 16:36 → MEDS 01-31 19:51 → ENPENDDIS 02-21 09:08 → MEDS 02-21 09:57
PROVIDERS: Emergency Medicine; Nurse Practitioner Acute Care; ADMIT Internal Medicine
DX: I60.9 Nontraumatic subarachnoid hemorrhage, unspecified (principal); G93.41 Metabolic encephalopathy; Z51.5 Encounter for palliative care; G47.33 Obstructive sleep apnea (adult) (pediatric); F03.90 Unspecified dementia, unspecified severity, without behavioral disturbance, psychotic disturbance, mood disturbance, and anxiety; G31.83 Neurocognitive disorder with Lewy bodies; F02.80 Dementia in other diseases classified elsewhere, unspecified severity, without behavioral disturbance, psychotic disturbance, mood disturbance, and anxiety; S00.03XA Contusion of scalp, initial encounter; Z91.81 History of falling; W19.XXXA Unspecified fall, initial encounter; I10 Essential (primary) hypertension; I25.10 Atherosclerotic heart disease of native coronary artery without angina pectoris; N40.0 Benign prostatic hyperplasia without lower urinary tract symptoms; E03.9 Hypothyroidism, unspecified
CPT/HCPCS: 12002; 36415; 70450; 80048; 80053; 83735; 85025; 85027; 93005; 93010; 94762; 96374-59; 96375; 96376; 97116; 97162; 97166; 97530; 97535; 99285-25; G0378; J1200; J2060; Q0163